=== PATIENT | female | born 1985 | race Caucasian/White ===

== ENCOUNTER 2016-05-06 07:00 | Observation (INO) | payer OTHER ==
[2016-05-06] MEDS ORDERED: MISOPROSTOL 100 MCG TAB VAG PRN ×2 (07:30→09:48)
[2016-05-06] MEDS ORDERED: ACETAMINOPHEN 325 MG PO PRN (08:15)
[2016-05-06] MEDS ORDERED: IBUPROFEN 600 MG TAB PO PRN (08:15)
[2016-05-06] MEDS ORDERED: TRAMADOL HYDROCHLORIDE 50 MG TAB PO PRN (08:15)
[2016-05-06] MEDS ORDERED: ONDANSETRON 4 MG ODT BU PRN (08:15)
[2016-05-06 10:06] VITALS: TEMP 98.9
[2016-05-06] MEDS ORDERED: OXYTOCIN 10000 MU/ML SOL IM PRN (11:47)
[2016-05-06] MEDS ORDERED: SODIUM CHLORIDE 0.9% FLUSH 10 ML SOL IV PRN (11:47)
[2016-05-06] MEDS ORDERED: MEPIVACAINE HCL 1% MPF 30 ML SOL INFIL PRN (11:47)
[2016-05-06] MEDS ORDERED: LACTATED RINGERS 1,000 ML IV PRN (11:47)
[2016-05-06] MEDS ORDERED: METHYLERGONOVINE MALEATE 0.2 MG/ML SOL IM PRN (11:47)
[2016-05-06] MEDS ORDERED: CARBOPROST 250 MCG/ML SOL IM PRN (11:47)
[2016-05-06 11:50] VITALS: O2SAT 98
[2016-05-06] MEDS ORDERED: SODIUM CHLORIDE 0.9% FLUSH 10 ML SOL IV SCH (12:00)
[2016-05-06 12:55] VITALS: RESP 20
[2016-05-06 14:18] VITALS: BP 115/87; PULSE 96
== END 2016-05-06 13:45 | disposition home or self-care (01) | DRG 779 ==
LOC: EDSTATUS 07:00 → OB 07:41
PROVIDERS: ADMIT Emergency Medicine; ATTEND Emergency Medicine
DX: O02.1 Missed abortion (principal)
CPT/HCPCS: 36415

== ENCOUNTER 2017-05-04 10:41 | Inpatient (IN) | payer OTHER ==
[2017-05-04] MEDS: SODIUM CHLORIDE 0.9% FLUSH 10 ML SOL IV PRN ×4 (12:50→19:51)
[2017-05-04] MEDS ORDERED: SODIUM CHLORIDE 0.9% 1000ML 1,000 ML IV ONE (13:00)
[2017-05-04] MEDS ORDERED: TRAMADOL HYDROCHLORIDE 50 MG TAB PO ONE (13:00)
[2017-05-04] MEDS ORDERED: ONDANSETRON HCL 4 MG/2 ML SOL IV ONE (13:00)
[2017-05-04] MEDS ORDERED: ONDANSETRON HCL 4 MG/2 ML SOL ONE (13:03)
[2017-05-04] MEDS ORDERED: TRAMADOL HYDROCHLORIDE 50 MG TAB ONE (13:23)
[2017-05-04] MEDS ORDERED: HYDROMORPHONE 1 MG/ML SYRINGE IV PRN (13:37)
[2017-05-04] MEDS: SODIUM CHLORIDE 0.9% 1000ML 1,000 ML IV SCH ×2 (14:00→18:52)
[2017-05-04] MEDS ORDERED: HYDROMORPHONE HCL 2 MG/ML SOL ONE ×3 (14:34→19:47)
[2017-05-04] MEDS: HYDROMORPHONE HCL 2 MG/ML SOL IV PRN ×3 (14:52→19:51)
[2017-05-04] MEDS ORDERED: DIPHENHYDRAMINE 50 MG/ML SOL IV PRN (18:02)
[2017-05-04 19:52] VITALS: O2SAT 96
[2017-05-05] MEDS ORDERED: ONDANSETRON HCL 4 MG/2 ML SOL ONE (01:06)
[2017-05-05] MEDS: HYDROMORPHONE HCL 2 MG/ML SOL IV PRN ×3 (01:13→03:06)
[2017-05-05] MEDS: ONDANSETRON HCL 4 MG/2 ML SOL IV PRN ×2 (01:18→13:42)
[2017-05-05] MEDS: SODIUM CHLORIDE 0.9% FLUSH 10 ML SOL IV PRN (02:31)
[2017-05-05] MEDS ORDERED: HYDROMORPHONE HCL 2 MG/ML SOL ONE (03:02)
[2017-05-05] MEDS ORDERED: DIPHENHYDRAMINE 50 MG/ML SOL ONE (03:14)
[2017-05-05] MEDS: SODIUM CHLORIDE 0.9% 1000ML 1,000 ML IV SCH (04:58)
[2017-05-05 07:25] LABS: CALCIUM 7.4 mg/dl (8.5-10.1)
[2017-05-05] MEDS: APAP/HYDROCODONE 325/5 TAB PO PRN ×2 (08:15→13:39)
[2017-05-05 08:24] VITALS: PULSE 74
[2017-05-05] MEDS ORDERED: OXYCODONE HYDROCHLORIDE 5 MG TAB ONE (15:25)
[2017-05-05] MEDS ORDERED: OXYCODONE HYDROCHLORIDE 5 MG TAB PO ONE (15:30)
[2017-05-05 19:33] VITALS: BP 110/69; RESP 14; TEMP 97.6
== END 2017-05-05 18:10 | disposition home or self-care (01) | DRG 781 ==
LOC: OBOP 10:41 → OB 18:22
PROVIDERS: ADMIT Family Medicine; ATTEND Family Medicine
DX: O26.833 Pregnancy related renal disease, third trimester (principal); N13.2 Hydronephrosis with renal and ureteral calculous obstruction; Z3A.30 30 weeks gestation of pregnancy
CPT/HCPCS: 36415; 59025; 80048; 96365; 96366; J1170; J1200; J2405; A9270-GY

== ENCOUNTER 2017-07-07 09:50 | Inpatient (IN) | payer OTHER ==
[2017-07-07] MEDS ORDERED: SODIUM CHLORIDE 0.9% FLUSH 10 ML SOL IV PRN (13:48)
[2017-07-07] MEDS ORDERED: OXYTOCIN 10000 MU/ML SOL IM PRN (13:48)
[2017-07-07] MEDS ORDERED: LACTATED RINGERS 1,000 ML IV PRN (13:48)
[2017-07-07] MEDS ORDERED: MEPIVACAINE HCL 1% MPF 30 ML SOL INFIL PRN (13:48)
[2017-07-07] MEDS ORDERED: CARBOPROST 250 MCG/ML SOL IM PRN (13:48)
[2017-07-07] MEDS ORDERED: METHYLERGONOVINE MALEATE 0.2 MG/ML SOL IM PRN (13:48)
[2017-07-07] MEDS ORDERED: FENTANYL 100MCG/2ML SOL IV PRN (13:48)
[2017-07-07] MEDS: SODIUM CHLORIDE 0.9% FLUSH 10 ML SOL IV SCH ×2 (15:00→22:30)
[2017-07-08] MEDS: SODIUM CHLORIDE 0.9% FLUSH 10 ML SOL IV SCH ×2 (08:00→19:15)
[2017-07-08] MEDS ORDERED: WITCH HAZEL 1 EA PAD TOP PRN (18:07)
[2017-07-08] MEDS ORDERED: FLEET ENEMA PR PRN (18:07)
[2017-07-08] MEDS ORDERED: METHYLERGONOVINE MALEATE 0.2 MG TAB PO PRN (18:07)
[2017-07-08] MEDS ORDERED: BENZOCAINE/MENTHOL 1 SPR TOP PRN (18:07)
[2017-07-08] MEDS ORDERED: TEMAZEPAM 15MG 15 MG CAP PO PRN (18:07)
[2017-07-08] MEDS ORDERED: BISACODYL 10 MG SUP PR PRN (18:07)
[2017-07-08] MEDS ORDERED: APAP/HYDROCODONE 325/5 TAB PO PRN (18:07)
[2017-07-08] MEDS: IBUPROFEN 600 MG TAB PO PRN (18:09)
[2017-07-08] MEDS: DOCUSATE SODIUM 100 MG SGL PO SCH (23:04)
[2017-07-09] MEDS: SODIUM CHLORIDE 0.9% FLUSH 10 ML SOL IV SCH (00:08)
[2017-07-09] MEDS: IBUPROFEN 600 MG TAB PO PRN ×2 (00:08→09:32)
[2017-07-09 05:13] VITALS: RESP 16
[2017-07-09] MEDS: DOCUSATE SODIUM 100 MG SGL PO SCH (09:32)
[2017-07-09 10:47] VITALS: BP 108/66; PULSE 71; TEMP 97.4; O2SAT 97
== END 2017-07-09 19:46 | disposition home or self-care (01) | DRG 775 ==
LOC: OBOP 09:50 → EDSTATUS 13:43 → OBSVTOIN 13:45 → OB 13:45
PROVIDERS: ADMIT Family Medicine; ATTEND Family Medicine
PROC: 10E0XZZ Delivery of Products of Conception, External Approach (ICD-10-PCS; principal; 2017-07-08)
PROC: 10907ZC Drainage of Amniotic Fluid, Therapeutic from Products of Conception, Via Natural or Artificial Opening (ICD-10-PCS; 2017-07-08)
PROC: 0HQ9XZZ Repair Perineum Skin, External Approach (ICD-10-PCS; 2017-07-08)
DX: O80 Encounter for full-term uncomplicated delivery (principal); O69.81X0 Labor and delivery complicated by cord around neck, without compression, not applicable or unspecified; Z37.0 Single live birth; Z3A.39 39 weeks gestation of pregnancy
CPT/HCPCS: 36415; 59025; 85018; J0670; J2590; A9270-GY